=== PATIENT | male | born 1945 | race Caucasian/White ===

== ENCOUNTER → 2018-04-21 15:20 | Outpatient (CLI) | payer OTHER, SELFPAY ==
[2018-04-21 17:05] LABS: Prostate Specific Antigen < 0.064 ng/mL (0.10-4.00)
== END ==
PROVIDERS: Visit Provider Specialist
DX: C61 Malignant neoplasm of prostate (principal)
CPT/HCPCS: 36415; 84153

== ENCOUNTER 2018-11-03 10:13 | Emergency (ER) | payer MEDICARE, OTHER, SELFPAY ==
[2018-11-03 10:19] VITALS: BP 132/76; PULSE 78; RESP 18; TEMP 36.8; O2SAT 92
--- NOTE | 2018-11-03 10:23 | DI.RAD.S_ITS ---
PROCEDURE: XR FINGER LT MIN 2V INDICATIONS: fall TECHNIQUE: AP hand, 2 views of the 3 finger(s) acquired. COMPARISON: None. FINDINGS: Bones: No fractures or dislocations. No suspicious bony lesions. Soft tissues: No suspicious soft tissue calcifications. IMPRESSION: No fracture or dislocation. Dictated by: Zoe Washington M.D. on 11/03/2018 at 11:13 Approved by: Zoe Washington M.D. on 11/03/2018 at 11:15
--- NOTE | 2018-11-03 11:18 | ED.SKABFB ---
HPI - Skin/Abscess/Foreign Bdy General Chief complaint: Skin/Abscess/Foreign Body Stated complaint: left hand little finger injury Time Seen by Provider: 11/03/18 11:17 Source: patient Mode of arrival: ambulatory History of Present Illness HPI narrative: 73-year-old male comes emergency department with complaint of laceration to the 5th finger on the left hand. Patient is left-hand dominant. Patient missed just getting on the back of his pickup truck and fell onto his hand cutting his finger. He denies any other injuries. Denies hitting his had no neck pain or back pain. States his tetanus is up-to-date in the last year, patient has sensation in the end of his finger he states painful. Patient is on aspirin daily as he has a history of bypass. Related Data Home Medications Medication Instructions Recorded Confirmed aspirin 81 mg PO DAILY 11/03/18 11/03/18 atorvastatin 10 mg PO DAILY 11/03/18 11/03/18 diltiazem HCl 240 mg PO DAILY 11/03/18 11/03/18 imipramine HCl 10 - 40 mg PO Q8-12H PRN 11/03/18 omeprazole 40 mg PO DAILY 11/03/18 11/03/18 sunscreen 1 applic TOPICAL Q2H PRN 11/03/18 11/03/18 terazosin 10 mg PO BEDTIME 11/03/18 11/03/18 Allergies Allergy/AdvReac Type Severity Reaction Status Date / Time No Known Drug Allergies Allergy Unverified 11/02/18 09:26 Review of Systems Review of Systems ROS Unobtainable: All systems reviewed & are unremarkable except as noted in HPI and below PFSH Social History Smoking Status: Former smoker Social History Smoking Status: Former smoker Exam Narrative Exam Narrative: GENERAL: Alert and oriented x three, obese, well-appearing male in no acute distress. HEENT: Head normocephalic, atraumatic, EOMI, pupils reactive, face symmetric, moist mucous membranes NECK: Supple, full range of motion CARDIOVASCULAR: Regular rate and rhythm without murmurs, rubs or gallops. RESPIRATORY: Breath sounds equal bilaterally, no wheezes rales or rhonchi. ABDOMEN: Soft, nontender. Normoactive bowel sounds all 4 quadrants. No guarding or rebound, rigidity, no mass EXTREMITIES: Normal range of motion, no clubbing. Patient's left hand his 5th finger has an avulsion flap injury through the distal finger, it is on the pad of the finger and does not include his nail bed. Patient has sensation distally, cap refills less than 2 seconds. He has a little bit of ecchymosis along the edge of the laceration. The rest of the finger is ecchymotic. He is able to flex and extend. Muscle strength is intact. Patient does not have any other bony or soft tissue injury to the rest of the hand. He has 2+ radial pulse. Neurovascularly intact NEUROLOGICAL: Cranial nerves II through XII grossly intact. Moving all extremities SKIN: Warm, dry, no petechiae, no rashes or lesions. Initial Vital Signs Initial Vital Signs: Vital Signs Temperature 98.2 F 11/03/18 10:19 Pulse Rate 78 11/03/18 10:19 Respiratory Rate 18 11/03/18 10:19 Blood Pressure 132/76 11/03/18 10:19 Pulse Oximetry 92 11/03/18 10:19 Procedures Laceration Repair Laceration 1: Site: hand (5th finger) Side (If applicable): left Size (cm): 2.5 Description: flap Depth: simple, single layer Local Anesthetic: lidocaine 1% Amount of anesthesia used (mL): 6 Pre-repair: wound explored, irrigated extensively and deep structures intact Skin layer closed with: nylon Size (cm): 4-0 Number of sutures: 8 Technique: simple, interrupted Course Orders Ordered: ED Orders 11/03/18 10:23 XR finger LT min 2V Stat Discontinued Medications Lidocaine/Sodium Bicarbonate (Buffered Lidocaine 10 Ml Syr) 10 ml INJ NOW ONE Stop: 11/03/18 11:26 Last Admin: 11/03/18 12:05 Dose: 10 ml Documented by: JAKE Vital Signs Vital signs: Vital Signs - 8 hr 11/03/18 12:43 Pulse Rate 85 Respiratory Rate 17 Blood Pressure [Right Arm] 137/79 Pulse Oximetry 98 MDM - Skin/Abscess/Foreign Bdy Imaging Data Finger x-ray: Radiologist's impression: [address] [address] XRay Report Signed Patient: Jaswinder Colindres [facility]#: [id number] : 6Acct:[id number] Age/Sex: 73 / MDate of Service: 11/03/18 Loc: ED Accession Number: [id number] Procedure: XR finger LT min 2V Ordering Provider: Viviane Tejeda D.O. PROCEDURE: XR FINGER LT MIN 2V INDICATIONS: fall TECHNIQUE: AP hand, 2 views of the 3 finger(s) acquired. COMPARISON: None. FINDINGS: Bones: No fractures or dislocations. No suspicious bony lesions. Soft tissues: No suspicious soft tissue calcifications. IMPRESSION: No fracture or dislocation. Dictated by: Zoe Washington M.D. on 11/03/2018 at 11:13 Approved by: Zoe Washington M.D. on 11/03/2018 at 11:15 MDM Narrative Medical decision making narrative: Patient tolerated procedure well. He required a little bit of bandages he continued have some oozing likely secondary to his aspirin. No fracture was noted on x-ray. Patient and I discussed signs and symptoms to watch for reasons to return emergently and plan for sutures to be removed in 7-10 days. Discharge Plan Departure Patient Disposition: Home Clinical Impression: Finger laceration Qualifiers: Encounter type: initial encounter Finger: little finger Damage to nail status: without damage Foreign body presence: without foreign body Laterality: left Qualified Code(s): S61.217A - Laceration without foreign body of left little finger without damage to nail, initial encounter Discharge Date/Time: 11/03/18 12:48 Instructions: DI for Laceration Repair -- Finger Activity Restrictions/Additional Instructions: You may use up to a 1000 mg every 8 hours as needed for pain. Wear splint as needed to remind yourself not to use your finger. Wound Care: Keep wound(s) clean and dry. Wash twice daily with soap and water only. Do not use over the counter products (alcohol or peroxide)on the wounds unless instructed by a physician. You may put triple antibiotic ointment on twice daily with dressing changes. If wound condition worsens (increased/expanding redness, developing fluid blisters, or worsening pain), either contact your doctor for an urgent re-assessment , or return to the Emergency Department. Return to the Emergency Department for any new or worsening symptoms. Return to the ED, urgent care, or vist a primary care doctor for removal or suture or jose manuel in 7-10 days for suture removal. Return if fever greater than 100.4 Fahrenheit, increased swelling, increasing pain or worsening symptoms such as increased discharge or spreading redness. Prescriptions: No Action atorvastatin 10 mg Tablet 10 mg PO DAILY RF: 0 diltiazem HCl 240 mg Capsule,Extended Release 24 Hr 240 mg PO DAILY RF: 0 omeprazole 40 mg Capsule,Delayed Release(Dr/Ec) 40 mg PO DAILY RF: 0 aspirin 81 mg Tablet,Delayed Release (Dr/Ec) 81 mg PO DAILY RF: 0 imipramine HCl 10 mg Tablet 10 - 40 mg PO Q8-12H PRN (Reason: urinary symptoms) RF: 0 terazosin 10 mg Capsule 10 mg PO BEDTIME RF: 0 sunscreen Lotion 1 applic TOPICAL Q2H PRN (Reason: during sun exposure) RF: 0
[2018-11-03] MEDS: LIDO 1%/SOD BICARB 8.4% (10ML) 10 ML SYRINGE INJ (12:05)
[2018-11-03 12:43] VITALS: BP 137/79; PULSE 85; RESP 17; O2SAT 98
--- NOTE | 2018-11-03 12:47 | PC.NURSE ---
Tube gauze applied to L 5th finger per MD MACIAS
== END 2018-11-03 12:48 | disposition home or self-care (01) ==
PROVIDERS: Emergency Provider Emergency Medicine
DX: S61.217A Laceration without foreign body of left little finger without damage to nail, initial encounter (principal)
CPT/HCPCS: 12001; 29130; 73140; 99282; 99283

== ENCOUNTER → 2019-09-20 13:39 | Outpatient (CLI) | payer OTHER, SELFPAY ==
--- NOTE | 2019-09-20 13:53 | DI.ECHO.S_ITS ---
Echocardiogram Report + + :Name: RADHA SUE Study Date: 09/20/2019 Height: 69 in : :[facility] Weight: 250 lb : : Gender: Male BSA: 2.3 m2 : :: 1945 Age: 73 yrs BP: 124/68 mmHg: :Reason For Study: HEART DISEASE : :Ordering Physician: JULIAN, : :SHAWNA Performed By: Rubia Mills : :Referring: SHAWNA JORDAN : + + Interpretation Summary The left ventricle is normal in size. The ejection fraction is estimated to be 65-70%. The right ventricle is normal size. The right ventricular systolic function is normal. There is mild to moderate tricuspid regurgitation. The right ventricular systolic pressure is estimated to be at least 33 mmHg based on an estimated right atrial pressure of 8 mm Hg. Mild atherosclerotic plaque(s) in the aortic arch. Procedure: A two-dimensional transthoracic echocardiogram with color flow and Doppler was performed. There is no prior echocardiogram noted for this patient. The study quality was technically difficult. The patient was in normal sinus rhythm during the exam. The patient had a bundle branch block rhythm during the exam. The patient had occasional PACs during the exam. Left Ventricle: The left ventricle is normal in size. There is mild concentric left ventricular hypertrophy. There is no thrombus. The ejection fraction is estimated to be 65-70%. There are no focal wall motion abnormalities. Diastolic parameters suggest a relaxation abnormality of the left ventricle, consistent with probable normal filling pressures. Right Ventricle: The right ventricle is normal size. The right ventricular systolic function is normal. Atria: The left atrium is moderately dilated. Right atrial size is normal. There is no Doppler evidence for an interatrial shunt. Mitral Valve: The mitral valve leaflets appear mildly thickened, but open well. There is trace mitral regurgitation. Aortic Valve: The aortic valve is not well visualized. The aortic valve opens well. The aortic valve is trileaflet. There is no aortic valve stenosis. There is trace aortic regurgitation. Tricuspid Valve: The tricuspid valve is not well visualized, but is grossly normal. There is mild to moderate tricuspid regurgitation. The right ventricular systolic pressure is estimated to be at least 33 mmHg based on an estimated right atrial pressure of 8 mm Hg. Pulmonic Valve: The pulmonic valve is not well seen, but is grossly normal. There is trace pulmonic regurgitation. Great Vessels: The aortic root is normal size. The ascending aorta is at the upper limits of normal in size. Mild atherosclerotic plaque(s) in the aortic arch. The IVC is dilated (diameter is greater than 2.1 cm) yet it collapses greater than 50% with a sniff. This suggests a right atrial pressure of 8 mm Hg. Pericardium/ Pleura There is no pericardial effusion. There is no pleural effusion. MMode/2D Measurements & Calculations LVIDd: 4.7 cm LVOT diam: 2.4 cm LVIDs: 3.1 cm Ao root diam: 3.4 cm FS: 33.8 % asc Aorta Diam: 3.8 cm EPSS: 0.62 cm Ao Arch Diam (Prox Trans): 3.2 cm IVSd: 1.1 cm LVPWd: 1.1 cm LV church. diameter/BSA (cm/m^2): 2.1 LV sys. diameter/BSA (cm/m^2): 1.4 LA A2 area: 27.0 cm2 RA long axis: 6.2 cm LA A4 area: 23.7 cm2 RA area: 21.5 cm2 LA length (vol): 5.8 cm RA vol: 63.8 ml LA vol: 94.1 ml RA : 28.1 ml/m2 LA vol index: 41.4 ml/m2 IVC diam: 1.4 cm RVD1 (basal): 3.7 cm TAPSE: 1.7 cm Doppler Measurements & Calculations Ao V2 max: 153.4 cm/sec LVOT Max Toni: 142.1 cm/sec Ao V2 mean: 98.0 cm/sec LV V1 max P.1 mmHg Ao max P.4 mmHg LV V1 VTI: 26.5 cm Ao mean P.5 mmHg YUMIKO(I,D): 4.3 cm2 Ao V2 VTI: 28.3 cm YUMIKO(V,D): 4.3 cm2 sev ratio: 0.94 YUMIKO indexed to BSA (cm^2/m^2): 1.9 MV E max toni: 68.5 cm/sec TR max toni: 274.9 cm/sec MV A max toni: 71.1 cm/sec TR max P.0 mmHg MV E/A: 0.96 PA V2 max: 90.7 cm/sec Med Peak E' Toni: 7.8 cm/sec PA V2 mean: 56.4 cm/sec E/E' med: 8.7 PA mean P.5 mmHg Lat Peak E' Toni: 9.1 cm/sec PA pr(Accel): 27.6 mmHg E/E' lat: 7.5 E/e' average: 8.1 MV dec time: 0.29 sec SV(LVOT): 121.6 ml Reading Physician:05:42 PM
== END ==
PROVIDERS: Referring Provider Physician Assistant; Visit Provider Physician Assistant
DX: I07.1 Rheumatic tricuspid insufficiency (principal); I70.0 Atherosclerosis of aorta
CPT/HCPCS: 93306